=== PATIENT | female | born 1960 | race Caucasian/White ===

== ENCOUNTER 2025-08-03 18:35 | Inpatient (IN) | payer MEDICARE, MEDICAID ==
[~2025-08-03] VITALS: Ht 172.7 cm; Wt 65.5 kg
--- NOTE | 2025-08-03 18:49 | ED.PDOC ---
History of Present Illness HPI Comments 65-year-old female BIBA with prior medical history of MS, high lipids and a chief complaint of constipation. EMS report on picking the patient up from [place] [facility] due from having a CAT scan done at [facility] and was diagnosed with a mild distal colonic ileus and constipation. Patient states t hat her last bowel movement was last night but informed EMS that she has been loose for two months. Denies any other symptoms at this time. Denies chills, fever, N/V, SOB, CP. No other associated symptoms, modifiers, recent injuries or sick contacts present at this time. Chief Complaint: Constipation Time Seen by MD: 18:45 Reviewed Notes: Nurses Notes, Solid Glass Rod Dowel Machine Operator Notes, Medications, Allergies Allergies: Coded Allergies: NO KNOWN ALLERGIES (Unverified , 08/03/25) Information Source: Patient Mode of Arrival: EMS Severity: Moderate Timing: Months Duration: Since onset Prehospital treatment: None Past Medical History Past Medical History (Other): MS, high lipids Surgical History: Denies all surgeries AUTOMOTIVE GENERAL SALES MANAGER History: No Pertinent AUTOMOTIVE GENERAL SALES MANAGER History Family History Family History: Reviewed,noncontributory to illness, Unknown Social History Smoker: Non-Smoker Alcohol: Denies ETOH Use Drugs: Denies Drug Use Lives In: Assisted Care ([place] [facility]) Constitutional: denies: chills, diaphoresis, fatigue, fever, malaise, sweats, weakness, others EENTM: denies: blurred vision, double vision, ear bleeding, ear discharge, ear drainage, ear pain, ear ringing, eye pain, eye redness, hearing loss, mouth pain, mouth swelling, nasal discharge, nose bleeding, nose congestion, nose pain, photophobia, tearing, throat pain, throat swelling, voice changes, others Respiratory: denies: cough, hemoptysis, orthopnea, SOB at rest, shortness of breath, SOB with excertion, stridor, wheezing, others Cardiovascular: denies: chest pain, dizzy spells, diaphoresis, Dyspnea on exertion, edema, irregular heart beat, left arm pain, lightheadedness, palpitations, PND, syncope, others Gastrointestinal: reports: constipated, diarrhea; denies: abdomen distended, abdominal pain, blood streaked bowels, dysphagia, difficulty swallowing, hematemesis, melena, nausea, poor appetite, poor fluid intake, rectal bleeding, rectal pain, vomiting, others Genitourinary: denies: abnormal vagina bleeding, burning, dyspareunia, dysuria, flank pain, frequency, hematuria, incontinence, pain, , vagina discharge, urgency, others Neurological: denies: dizziness, fainting, headache, left sided numbness, left sided weakness, numbness, paresthesia, pre-existing deficit, right sided numbness, right sided weakness, seizure, speech problems, tingling, tremors, weakness, others Musculoskeletal: denies: back pain, gout, joint pain, joint swelling, muscle pain, muscle stiffness, neck pain, others Integumetry: denies: bruises, change in color, change in hair/nails, dryness, laceration, lesions, lumps, rash, wounds, others Allergic/Immunocompromised: denies: Difficulty Healing, Frequent Infections, Hives, Itching, others Hematologic/Lymphatic: denies: anemia, blood clots, easy bleeding, easy bruising, swollen glands, others Endocrine: denies: excessive hunger, excessive sweating, excessive thirst, excessive urination, flushing, intolerance to cold, intolerance to heat, unexplained weight gain, unexplained weight loss, others Psychiatric: denies: anxiety, bipolar disorder, depression, hopeless, panic disorder, schizophrenia, sleepless, suicidal, others All Other Systems: Reviewed and Negative Physical Exam General Appearance: Moderate Distress HEENT: Normal ENT Inspection, Pharynx Normal, TMs Normal Neck: Full Range of Motion, Non-Tender, Normal, Normal Inspection Respiratory: Chest Non-Tender, Lungs Clear, No Accessory Muscle Use, No Respiratory Distress, Normal Breath Sounds Cardiovascular: No Edema, No JVD, No Murmur, No Gallop, Normal Peripheral Pulses, Regular Rate/Rhythm Breast Exam: Deferred Gastrointestinal: Diffuse, No Organomegaly, No Pulsatile Mass, Normal Bowel Sounds, Soft, Tenderness Genitalia: Deferred Pelvic: Deferred Rectal: Deferred Extremities: No calf tenderness, Normal capillary refill, Normal inspection, Normal range of motion, Non-tender, No pedal edema Musculoskeletal : Apperance: Normal Neurologic: Alert, laminating machine feeder II-XII nml as Tested, No Motor Deficits, Normal Affect, Normal Mood, No Sensory Deficits Cerebellar Function: Normal Reflexes: Normal Skin: Dry, Normal Color, Warm Lymphatic: No Adenopathy Was a procedure done? Was a procedure done?: No Differential Dx Considerations may include: Fecal impaction, abdominal pain, generalized weakness X-Ray, Labs, Meds, VS Vital Signs Date Time Temp Pulse Resp B/P (MAP) Pulse Ox O2 Delivery O2 Flow Rate FiO2 08/03/25 19:02 98.3 96 13 126/71 (89) 96 98.3 08/03/25 18:45 97.6 95 18 110/72 98 97.6 Lab Test 08/03/25 19:07 Range/Units White Blood Count 8.5 4.4-10.8 10^3/uL Red Blood Count 5.66 H 4.0-5.20 10^6/uL Hemoglobin 15.8 12.2-16.2 g/dL Hematocrit 47.6 H 36.0-46.0 % Mean Corpuscular Volume 84.0 80.0-100.0 fL Mean Corpuscular Hemoglobin 28.0 28.0-32.0 pg Mean Corpuscular Hemoglobin Concent 33.3 32.0-36.0 g/dL Red Cell Distribution Width 14.0 11.8-14.3 % Platelet Count 254 140-450 10^3/uL Mean Platelet Volume 8.3 6.9-10.8 fL Neutrophils (%) (Auto) 57.1 37.0-80.0 % Lymphocytes (%) (Auto) 33.6 10.0-50.0 % Monocytes (%) (Auto) 7.6 0.0-12.0 % Eosinophils (%) (Auto) 1.2 0.0-7.0 % Basophils (%) (Auto) 0.5 0.0-2.0 % Neutrophils # (Auto) 4.8 1.6-8.6 10 ^3/uL Lymphocytes # (Auto) 2.8 0.4-5.4 10 ^3/uL Monocytes # (Auto) 0.6 0-1.3 10 ^3/uL Eosinophils # (Auto) 0.1 0-0.8 10 ^3/uL Basophils # (Auto) 0 0-0.2 10 ^3/uL Nucleated Red Blood Cells 0.9 % Sodium Level Pending Potassium Level Pending Chloride Level Pending Carbon Dioxide Level Pending Anion Gap Pending Blood Urea Nitrogen Pending Creatinine Pending Glomerular Filtration Rate Calc Pending BUN/Creatinine Ratio Pending Serum Glucose Pending Calcium Level Pending The patient's CBC is within normal limits IV Hep-Lock was established The patient is being admitted with a diagnosis of abdominal pain and constipation or fecal impaction Images Reviewed?: Images reviewed and evaluated by me Time of 1ST Reevaluation: 19:15 Reevaluation 1ST: Unchanged Patient Education/Counseling: Diagnosis, Treatment, Prognosis Family Education/Counseling: No Family Present SEPSIS Sepsis Screen Physician Orders Urinalysis (08/03/25 18:45) Heplock Iv (08/03/25 18:45) Basic Metabolic Panel (08/03/25 18:45) Vital Signs Date Time Temp Pulse Resp B/P (MAP) Pulse Ox O2 Delivery O2 Flow Rate FiO2 08/03/25 19:02 98.3 96 13 126/71 (89) 96 98.3 08/03/25 18:45 97.6 95 18 110/72 98 97.6 Laboratory Tests Test 08/03/25 19:07 White Blood Count 8.5 10^3/uL (4.4-10.8) Departure 1 Departure Time of Disposition: 19:40 Impression: Primary Impression: Intractable abdominal pain Additional Impression: Fecal impaction Disposition: 09 ADMITTED INPATIENT Admit to: Med Surg Condition: Fair Critical Care Note Critical Care Time?: No Stability Stability form required: Yes Unstable for transfer: ED Physician Assesment (Clinical assesment) Heart Score Heart Score: Heart Score Response (Comments) Value History N/A 0 EKG N/A 0 Age N/A 0 Risk Factors N/A 0 Troponin N/A 0 Total 0 I personally scribed for DIOR COX MD ([email or web address]) on 08/03/25 at 18:49. Electronically submitted by Sai Cai ([email or web address]). DIOR COX MD Aug 03, 2025 18:49
[2025-08-03 19:33] LABS: Hematocrit 47.6 % (36.0-46.0); Hemoglobin 15.8 g/dL (12.2-16.2); Mean Corpuscular Hemoglobin 28.0 pg (28.0-32.0); Mean Corpuscular Volume 84.0 fL (80.0-100.0); Nucleated Red Blood Cells % 0.9 %
[2025-08-03 19:37] LABS: Chloride 103 mmol/L (98-107); Potassium 3.9 mmol/L (3.5-5.1); Sodium 140 mmol/L (136-145)
[2025-08-03 19:38] LABS: Anion Gap 15 (5-15); Calcium 9.7 mg/dL (8.7-10.4); Carbon Dioxide 22 mmol/L (20-31)
[2025-08-03 19:43] LABS: BUN/Creatinine Ratio 15.8 (10.0-20.0); Blood Urea Nitrogen 9 mg/dL (9-23); Glucose 72 mg/dL (74-106)
[2025-08-03] MEDS ORDERED: HYDROcodone-ACET 5/325MG TAB PO PRN ×2 (20:15→20:30)
[2025-08-03] MEDS ORDERED: MORPHINE SULFATE 4 MG/ML SYR/VIAL IV PRN ×3 (20:15→20:30)
[2025-08-03] MEDS: SODIUM CHLORIDE 0.9% 1,000 ML IV SCH (20:15)
[2025-08-03] MEDS ORDERED: DOCUSATE SOD 100 MG CAP PO PRN (20:15)
[2025-08-03] MEDS ORDERED: ONDANSETRON HCL 4 MG/2 ML VIAL IV PRN (20:15)
[2025-08-03] MEDS ORDERED: ACETAMINOPHEN 325 MG TAB PO PRN ×2 (20:15→20:30)
[2025-08-03] MEDS ORDERED: NITROGLYCERIN 0.4 MG SL TAB SL PRN ×2 (20:15→20:30)
--- NOTE | 2025-08-03 20:28 | DVHHP2 ---
History of Present Illness HPI 65-year-old female BIBA with prior medical history of MS, high lipids and a chief complaint of constipation. EMS report on picking the patient up from [place] [facility] due from having a CAT scan done at [facility] and was diagnosed with a mild distal colonic ileus and constipation. Patient states that her last bowel movement was last night but informed EMS that she has been loose for two months. Denies any other symptoms at this time. Denies chills, fever, N/V, SOB, CP. No other associated symptoms, modifiers, recent injuries or sick contacts present at this time. H&P Exam Vital Signs Vital Signs Date Time Temp Pulse Resp B/P (MAP) Pulse Ox O2 Delivery O2 Flow Rate FiO2 08/03/25 19:17 95 12 120/72 (88) 96 08/03/25 19:17 Room Air* 0 21 08/03/25 19:02 98.3 98.3 SEPSIS Sepsis Screen Date sepsis recognized/suspect: Aug 03, 2025 Time Sepsis recognized/suspect: 1916 Recent Procedure: No On Antibiotic Therapy: No Respiratory Rate >20: No Heart Rate >90: Yes Temp<36 C (96.8 F) or >38.3 C: No SBP <90 or MAP <65 mmHG: No New Acute Mental Status Change: No Is the patient on CPAP, BIPAP,: No Physician Orders Urinalysis (08/03/25 18:45) Heplock Iv (08/03/25 18:45) Admit (08/03/25 20:07) Sodium Chloride 0.9% (08/03/25 20:15) Acetaminophen Tablet (Tylenol Tablet) (08/03/25 20:15) Hydrocodone-Acet 5/325mg Tab ([place] 5/32 (08/03/25 20:15) Ondansetron Hcl (Zofran) (08/03/25 20:15) Docusate Sodium Capsule (Colace Capsule) (08/03/25 20:15) Enoxaparin Sodium (Lovenox) (08/04/25 10:00) Complete Blood Count (08/04/25 04:00) Comprehensive Metabolic Panel (08/04/25 04:00) Clear Liq Diet (08/04/25 Breakfast) Nitroglycerin Sublingual (Ntrostat Subli (08/03/25 20:15) Stat Ekg For Chest Pain (08/03/25 20:07) Notify Of Changes From Base (08/03/25 20:07) Envelope Stamping Machine Operator For 24 Hours (08/03/25 20:07) Emergency Dysrhythmia Protocol (08/03/25 20:07) Rhythm Strips Once Every Shift (08/03/25 20:07) Oxygen By Nasal Cannula (08/03/25 20:07) * Gi Dvh Agronomy Research Manager (08/03/25 20:09) Morphine Sulfate Injection (08/03/25 20:15) Vital Signs Date Time Temp Pulse Resp B/P (MAP) Pulse Ox O2 Delivery O2 Flow Rate FiO2 08/03/25 19:17 95 12 120/72 (88) 96 08/03/25 19:17 Room Air* 0 21 08/03/25 19:02 98.3 96 13 126/71 (89) 96 98.3 08/03/25 18:45 97.6 95 18 110/72 98 97.6 Laboratory Tests Test 08/03/25 19:07 White Blood Count 8.5 10^3/uL (4.4-10.8) Labs/Xrays Labs Test 08/03/25 19:07 Range/Units White Blood Count 8.5 4.4-10.8 10^3/uL Red Blood Count 5.66 H 4.0-5.20 10^6/uL Hemoglobin 15.8 12.2-16.2 g/dL Hematocrit 47.6 H 36.0-46.0 % Mean Corpuscular Volume 84.0 80.0-100.0 fL Mean Corpuscular Hemoglobin 28.0 28.0-32.0 pg Mean Corpuscular Hemoglobin Concent 33.3 32.0-36.0 g/dL Red Cell Distribution Width 14.0 11.8-14.3 % Platelet Count 254 140-450 10^3/uL Mean Platelet Volume 8.3 6.9-10.8 fL Neutrophils (%) (Auto) 57.1 37.0-80.0 % Lymphocytes (%) (Auto) 33.6 10.0-50.0 % Monocytes (%) (Auto) 7.6 0.0-12.0 % Eosinophils (%) (Auto) 1.2 0.0-7.0 % Basophils (%) (Auto) 0.5 0.0-2.0 % Neutrophils # (Auto) 4.8 1.6-8.6 10 ^3/uL Lymphocytes # (Auto) 2.8 0.4-5.4 10 ^3/uL Monocytes # (Auto) 0.6 0-1.3 10 ^3/uL Eosinophils # (Auto) 0.1 0-0.8 10 ^3/uL Basophils # (Auto) 0 0-0.2 10 ^3/uL Nucleated Red Blood Cells 0.9 % Sodium Level 140 136-145 mmol/L Potassium Level 3.9 3.5-5.1 mmol/L Chloride Level 103 98-107 mmol/L Carbon Dioxide Level 22 20-31 mmol/L Anion Gap 15 5-15 Blood Urea Nitrogen 9 9-23 mg/dL Creatinine 0.57 0.550-1.02 mg/dL Glomerular Filtration Rate Calc 100 >90 mL/min BUN/Creatinine Ratio 15.8 10.0-20.0 Serum Glucose 72 L 74-106 mg/dL Calcium Level 9.7 8.7-10.4 mg/dL AMANDA SEARS DO Aug 03, 2025 20:28
[2025-08-03] MEDS: ENOXAPARIN SOD 40 MG/0.4 ML SYRINGE SC SCH (20:30)
[2025-08-03 22:27] VITALS: RESP 14
[2025-08-04] VITALS (8 sets, daily range): BP systolic 110–131; BP diastolic 62–88; PULSE 82–118; RESP 16–20; TEMP 97.5–98.6; O2SAT 94–97
[2025-08-04] MEDS ORDERED: MELA3TAB27 PO (06:15)
[2025-08-04] MEDS ORDERED: SIMV-268 PO (06:15)
[2025-08-04 06:46] LABS: Hematocrit 46.3 % (36.0-46.0); Hemoglobin 15.7 g/dL (12.2-16.2); Mean Corpuscular Hemoglobin 28.6 pg (28.0-32.0); Mean Corpuscular Volume 84.4 fL (80.0-100.0); Nucleated Red Blood Cells % 0.2 %
[2025-08-04 07:18] LABS: Alanine Aminotransferase 13 U/L (7-40); Albumin 3.9 g/dL (3.2-4.8); Alkaline Phosphatase 84 U/L (46-116); Anion Gap 19 (5-15); BUN/Creatinine Ratio 16.9 (10.0-20.0); Bilirubin, Total 0.8 mg/dL (0.2-1.0); Blood Urea Nitrogen 10 mg/dL (9-23); Calcium 9.6 mg/dL (8.7-10.4); Carbon Dioxide 19 mmol/L (20-31); Chloride 103 mmol/L (98-107); Glucose 66 mg/dL (74-106); Potassium 4.2 mmol/L (3.5-5.1); Sodium 141 mmol/L (136-145); Total Protein 6.7 g/dL (5.7-8.2)
[2025-08-04] MEDS ORDERED: ENOXAPARIN SOD 40 MG/0.4 ML SYRINGE SC SCH (10:00)
--- NOTE | 2025-08-04 13:11 | DVHPN2 ---
Progress Note Objective vital signs Vital Sign Date Time Temp Pulse Resp B/P (MAP) Pulse Ox O2 Delivery O2 Flow Rate FiO2 08/04/25 12:34 98.4 82 20 115/66 (82) 97 98.4 08/04/25 08:00 Room Air* 0 21 Total Intake and Output 08/03/25 08/03/25 08/04/25 15:00 23:00 07:00 Intake Total 120 ml 0 ml Balance 120 ml 0 ml medications Current Medications Medications Dose Ordered Sig/Giovani Route Start Time Stop Time Status Last Admin Dose Admin Sodium Chloride 1,000 ml @ 120 mls/hr Q8H20M IV 08/03/25 20:15 08/03/25 20:15 120 MLS/HR Ondansetron HCl 4 mg Q4HP PRN IV 08/03/25 20:15 Docusate Sodium 100 mg BIDPRN PRN PO 08/03/25 20:15 Acetaminophen/ Hydrocodone Bitart 1 tab Q4HP PRN PO 08/03/25 20:30 Acetaminophen 650 mg Q6HP PRN PO 08/03/25 20:30 Morphine Sulfate 2 mg Q4HPRN PRN IV 08/03/25 20:30 Enoxaparin Sodium 40 mg DAILY@2000 SC 08/03/25 20:30 08/03/25 20:30 40 MG Nitroglycerin 0.4 mg Q5MINP PRN SL 08/03/25 20:30 Morphine Sulfate 2 mg Q30M PRN IV 08/03/25 20:30 laboratory and microbiology Laboratory Tests 08/04/25 06:06 08/04/25 06:04 Test 08/04/25 06:06 Range/Units Serum Glucose 66 L 74-106 mg/dL My Orders My Orders Orders - AMANDA SEARS DO Procedure Category Date Status Time Admit ADMIT 08/03/25 Transmitted 20:28 Code Status CODE 08/03/25 Transmitted 20:28 Hydrocodone-Acet PHA 08/03/25 In Process 5/325mg Tab ([place] 20:30 Complete Blood Count LAB 08/05/25 Verified 04:00 Comprehensive LAB 08/05/25 Verified Metabolic Panel 04:00 Acetaminophen Tablet PHA 08/03/25 In Process (Tylenol Tablet) 20:30 Enoxaparin Sodium PHA 08/03/25 In Process (Lovenox) 20:30 Nitroglycerin PHA 08/03/25 In Process Sublingual (Ntrostat 20:30 Stat Ekg For Chest YURY 08/03/25 In Process Pain 20:28 Notify Of Changes YURY 08/03/25 In Process From Base 20:28 Interface Control Officer For [facility] 08/03/25 In Process 24 Hours 20:28 Emergency Dysrhythmia [facility] 08/03/25 In Process Protocol 20:28 Rhythm Strips Once [facility] 08/03/25 In Process Every Shift 20:28 Oxygen By Nasal RT 08/03/25 Transmitted Cannula 20:28 Morphine Sulfate PHA 08/03/25 In Process Injection 20:30 Morphine Sulfate PHA 08/03/25 In Process Injection 20:30 AMANDA SEARS DO Aug 04, 2025 13:11
--- NOTE | 2025-08-04 13:41 | DVHINCON2 ---
GI Consult Consult Note GI consult note Date of Consultation: 08/04/2025 Chief Complaint: Abdominal pain Referring Physician: Dr. Le H&P: 65-year-old female past medical history of MS, high lipids admitted with complains of constipation. Patient was transferred from [place] [facility] where she had a CT scan done which diagnosed her with mild distal colonic ileus and constipation. Last bowel movement one day ago, usually patient has bowel movement about once a week. No melena or red blood in stool. Patient denies abdominal pain no nausea or vomiting Past Medical History: MS, high lipids Past Surgical History: Denies Social History: NO smoking, drinking ETOH and use of illegal drugs. Family History: Noncontributory Review of Systems: Constitutional: no fever, chill, weight loss HEENT: no eye pain, no hearing loss, no oral lesion, no scleral icterus Heart: no chest pain, no chest pressure Lung: no cough, no dyspnea with exertion Abdomen: see HPI Physical exam: General: NAD, AAOX3 Chest: lung noel clear to auscultation Heart: RRR, no murmur Abdomen: non-distended, no tenderness to palpation, +BS Labs: Labs Test 08/04/25 06:06 08/04/25 06:04 Range/Units Sodium Level 141 136-145 mmol/L Potassium Level 4.2 3.5-5.1 mmol/L Chloride Level 103 98-107 mmol/L Carbon Dioxide Level 19 L 20-31 mmol/L Anion Gap 19 H 5-15 Blood Urea Nitrogen 10 9-23 mg/dL Creatinine 0.59 0.550-1.02 mg/dL Glomerular Filtration Rate Calc 99 >90 mL/min BUN/Creatinine Ratio 16.9 10.0-20.0 Serum Glucose 66 L 74-106 mg/dL Calcium Level 9.6 8.7-10.4 mg/dL Total Bilirubin 0.8 0.2-1.0 mg/dL Aspartate Amino Transferase (AST) 18 13-40 U/L Alanine Aminotransferase (ALT) 13 7-40 U/L Alkaline Phosphatase 84 46-116 U/L Total Protein 6.7 5.7-8.2 g/dL Albumin 3.9 3.2-4.8 g/dL White Blood Count 8.1 4.4-10.8 10^3/uL Red Blood Count 5.48 H 4.0-5.20 10^6/uL Hemoglobin 15.7 12.2-16.2 g/dL Hematocrit 46.3 H 36.0-46.0 % Mean Corpuscular Volume 84.4 80.0-100.0 fL Mean Corpuscular Hemoglobin 28.6 28.0-32.0 pg Mean Corpuscular Hemoglobin Concent 33.9 32.0-36.0 g/dL Red Cell Distribution Width 13.8 11.8-14.3 % Platelet Count 252 140-450 10^3/uL Mean Platelet Volume 8.4 6.9-10.8 fL Neutrophils (%) (Auto) 65.3 37.0-80.0 % Lymphocytes (%) (Auto) 27.1 10.0-50.0 % Monocytes (%) (Auto) 5.9 0.0-12.0 % Eosinophils (%) (Auto) 1.1 0.0-7.0 % Basophils (%) (Auto) 0.6 0.0-2.0 % Neutrophils # (Auto) 5.3 1.6-8.6 10 ^3/uL Lymphocytes # (Auto) 2.2 0.4-5.4 10 ^3/uL Monocytes # (Auto) 0.5 0-1.3 10 ^3/uL Eosinophils # (Auto) 0.1 0-0.8 10 ^3/uL Basophils # (Auto) 0 0-0.2 10 ^3/uL Nucleated Red Blood Cells 0.2 % Imaging: Assessment: Abdominal pain improving Fecal impaction Plan: Discussed with Dr. Baca Advance diet as tolerated MiraLax and Fleet's enema We will continue to monitor patient Plan discussed with patient and RN Thank you for this consult Date of Service: Aug 04, 2025 Billing Provider: SUNITHA FLOWERS Common Visit Codes: CONSULT ONLY Consultation Codes: [id number] CONSULT <60MIN SUNITHA FLOWERS Aug 04, 2025 13:41
[2025-08-04] MEDS: FLEET ENEMA(ADULT) 135 ML PR ONE (14:50)
[2025-08-04] MEDS: POLYETHYLENE GLYCOL 17 GM PWDR PO ONE (14:51)
--- NOTE | 2025-08-04 17:58 | DVHPN2 ---
Progress Note - Dictate Date Seen: Aug 04, 2025 Medical Necessity Reason Pt with a Central, PICC or Fol: No vital signs Vital Sign Date Time Temp Pulse Resp B/P (MAP) Pulse Ox O2 Delivery O2 Flow Rate FiO2 08/04/25 16:35 97.9 118 18 131/88 (102) 97 97.9 08/04/25 08:00 Room Air* 0 21 Total Intake and Output 08/03/25 08/03/25 08/04/25 15:00 23:00 07:00 Intake Total 120 ml 0 ml Balance 120 ml 0 ml medications Current Medications Medications Dose Ordered Sig/Giovani Route Start Time Stop Time Status Last Admin Dose Admin Sodium Chloride 1,000 ml @ 120 mls/hr Q8H20M IV 08/03/25 20:15 08/04/25 14:50 Ondansetron HCl 4 mg Q4HP PRN IV 08/03/25 20:15 Docusate Sodium 100 mg BIDPRN PRN PO 08/03/25 20:15 Acetaminophen/ Hydrocodone Bitart 1 tab Q4HP PRN PO 08/03/25 20:30 Acetaminophen 650 mg Q6HP PRN PO 08/03/25 20:30 Morphine Sulfate 2 mg Q4HPRN PRN IV 08/03/25 20:30 Enoxaparin Sodium 40 mg DAILY@2000 SC 08/03/25 20:30 08/03/25 20:30 Nitroglycerin 0.4 mg Q5MINP PRN SL 08/03/25 20:30 Morphine Sulfate 2 mg Q30M PRN IV 08/03/25 20:30 objective General Appearance: alert, no distress HEENT: EOMI, PERRLA, normal external inspect of ears, no icterus, no nasal drainage Neck: no carotid bruit, no jugular venous distention (JVD), no lymphadenopathy Chest: normal thorax Respiratory: clear to auscultation, normal air movement Cardiovascular: regular rate and rhythm, no diastolic murmur, no jugular venous distention (JVD), no rub, no systolic murmur Abdominal: soft, no hepatomegaly, no mass, no splenomegaly, no tenderness Musculoskeletal: no joint tenderness, no swelling Extremities: normal pulses, no calf tenderness, no clubbing, no cyanosis, no edema Skin: no bruising, no jaundice, no rash Neurological: alert, No focal deficit laboratory and microbiology Laboratory Tests 08/04/25 06:06 08/04/25 06:04 Test 08/04/25 06:06 Range/Units Serum Glucose 66 L 74-106 mg/dL Problem List -Intractable abdominal pain GI consult, Clear liquid diet, monitoring -Hyperlipidemia Monitoring -Chronic constipation Medication, monitoring -Fecal impaction Medication, monitoring Assessment/Plan Subjective Patient is awake and alert. Objective Patient states she still has some improvement to her abdominal pain. Patient reports bowel movement yesterday. She states she has chronic constipation. She was seen by GI. Patient has fecal impaction. Plan Start cathartics. Continue clear liquid diet. Advance as tolerated. Restart simvastatin for hypercholesterolemia. Continue PPI and DVT prophylaxis. Plan discussed with: Patient, Other SUJATA EDDY NP Aug 04, 2025 17:58
--- NOTE | 2025-08-04 17:58 | DVHHP2 ---
Admitting Diagnosis: Constipation History of Present Illness 65 year old female is complaining of constipation. She states she had a CT done at [facility] and she was diagnosed with mild distal colonic ileus and constipation. Patient states her last bowel movement was last night. While in the emergency department the patient was evaluated by the provider. Patient will be admitted for further evaluation and treatment. I discussed admission with the patient/family and is in agreement to treatment plan. Patient Family History: Patient reports no known family medical history. Allergies: Coded Allergies: NO KNOWN ALLERGIES (Unverified , 08/03/25) Home Meds Reported Medications Simvastatin (Zocor) 10 Mg Tab, 10 MG PO HS, TAB 08/04/25 Melatonin (KP MELATONIN) 3 Mg Tab, 5 MG PO HS, TAB 08/04/25 Current Medications Current Medications Medications (Trade) Dose Ordered Sig/Giovani Route PRN Reason Start Time Stop Time Status Last Admin Sodium Chloride 1,000 ml @ 120 mls/hr Q8H20M IV 08/03/25 20:15 08/04/25 14:50 Acetaminophen (Tylenol Tablet) 325 mg Q4HP PRN PO MILD PAIN (1-3 PAIN SCALE) 08/03/25 20:15 08/03/25 20:39 DC Acetaminophen/ Hydrocodone Bitart ([place] 5/325MG Tab) 1 tab Q4HP PRN PO MODERATE PAIN (4-6 PAIN SCALE) 08/03/25 20:15 08/03/25 20:39 DC Ondansetron HCl (Zofran) 4 mg Q4HP PRN IV NAUSEA / VOMITING 08/03/25 20:15 Docusate Sodium (Colace Capsule) 100 mg BIDPRN PRN PO FOR CONSTIPATION 08/03/25 20:15 Enoxaparin Sodium (Lovenox) 40 mg DAILY SC 08/04/25 10:00 08/03/25 20:39 DC Nitroglycerin (Ntrostat Sublingual) 0.4 mg Q5MINP PRN SL FOR CHEST PAIN 08/03/25 20:15 08/03/25 20:39 DC Morphine Sulfate 2 mg Q30M PRN IV FOR CHEST PAIN 08/03/25 20:15 08/03/25 20:39 DC Acetaminophen/ Hydrocodone Bitart ([place] 5/325MG Tab) 1 tab Q4HP PRN PO MODERATE PAIN (4-6 PAIN SCALE) 08/03/25 20:30 Acetaminophen (Tylenol Tablet) 650 mg Q6HP PRN PO PAIN SCALE 1-3 OR TEMP>100.4 08/03/25 20:30 Morphine Sulfate 2 mg Q4HPRN PRN IV SEVERE PAIN (7-10 PAIN SCALE) 08/03/25 20:30 Enoxaparin Sodium (Lovenox) 40 mg DAILY@2000 SC 08/03/25 20:30 08/03/25 20:30 Nitroglycerin (Ntrostat Sublingual) 0.4 mg Q5MINP PRN SL FOR CHEST PAIN 08/03/25 20:30 Morphine Sulfate 2 mg Q30M PRN IV FOR CHEST PAIN 08/03/25 20:30 Melatonin (Melatonin) 5 mg HS PO 08/04/25 22:00 Patient Own Medication 10 mg HS PO 08/04/25 22:00 Pantoprazole Sodium (Protonix) 40 mg DAILY IV 08/05/25 10:00 Lactulose 30 ml BID PO 08/04/25 22:00 Bisacodyl (Dulcolax Suppository) 10 mg DAILY ME 08/04/25 18:15 08/04/25 18:33 Review of Systems Constipation Vital Signs Vital Signs Date Time Temp Pulse Resp B/P (MAP) Pulse Ox O2 Delivery O2 Flow Rate FiO2 08/04/25 16:35 97.9 118 18 131/88 (102) 97 97.9 08/04/25 08:00 Room Air* 0 21 Physical Exam General Appearance: alert, no distress HEENT: EOMI, PERRLA, normal external inspect of ears, no icterus, no nasal drainage Neck: no carotid bruit, no jugular venous distention (JVD), no lymphadenopathy Chest: normal thorax Respiratory: clear to auscultation, normal air movement Cardiovascular: regular rate and rhythm, no diastolic murmur, no jugular venous distention (JVD), no rub, no systolic murmur Abdominal: soft, no hepatomegaly, no mass, no splenomegaly, no tenderness Musculoskeletal: no joint tenderness, no swelling Extremities: normal pulses, no calf tenderness, no clubbing, no cyanosis, no edema Skin: no bruising, no jaundice, no rash Neurological: alert, No focal deficit SEPSIS Sepsis Screen Date sepsis recognized/suspect: Aug 03, 2025 Time Sepsis recognized/suspect: 1917 Recent Procedure: No On Antibiotic Therapy: No Respiratory Rate >20: No Heart Rate >90: Yes Temp<36 C (96.8 F) or >38.3 C: No SBP <90 or MAP <65 mmHG: No New Acute Mental Status Change: No Is the patient on CPAP, BIPAP,: No Physician Orders Urinalysis (08/03/25 18:45) Heplock Iv (08/03/25 18:45) Admit (08/03/25 20:07) Sodium Chloride 0.9% (08/03/25 20:15) Ondansetron Hcl (Zofran) (08/03/25 20:15) Docusate Sodium Capsule (Colace Capsule) (08/03/25 20:15) Stat Ekg For Chest Pain (08/03/25 20:07) Notify Md Of Changes From Base (08/03/25 20:07) Communication Coordinator For 24 Hours (08/03/25 20:07) Emergency Dysrhythmia Protocol (08/03/25 20:07) Rhythm Strips Once Every Shift (08/03/25 20:07) Oxygen By Nasal Cannula (08/03/25 20:07) * Gi D[facility] Corrections Counselor (08/03/25 20:09) Admit (08/03/25:) Code Status (08/03/25:) Hydrocodone-Acet 5/325mg Tab ([place] 5/32 (08/03/25 20:30) Complete Blood Count (08/05/25 04:00) Comprehensive Metabolic Panel (08/05/25 04:00) Acetaminophen Tablet (Tylenol Tablet) (08/03/25 20:30) Enoxaparin Sodium (Lovenox) (08/03/25 20:30) Nitroglycerin Sublingual (Ntrostat Subli (08/03/25 20:30) Stat Ekg For Chest Pain (08/03/25:) Notify Md Of Changes From Base (08/03/25:) Communication Coordinator For 24 Hours (08/03/25 20:) Emergency Dysrhythmia Protocol (08/03/25 20:) Rhythm Strips Once Every Shift (08/03/25 20:28) Oxygen By Nasal Cannula (12/16/25 20:28) Morphine Sulfate Injection (08/03/25 20:30) Morphine Sulfate Injection (08/03/25 20:30) Full Liq Diet (08/04/25 Dinner) Abdomen Without Contrast (08/04/25 17:58) Melatonin (Melatonin) (08/04/25 22:00) (Nf) Simvastatin (Zocor) (08/04/25 22:00) Pantoprazole (Protonix) (08/05/25 10:00) Lactulose Oral (08/04/25 22:00) Bisacodyl Suppository (Dulcolax Supposit (08/04/25 18:15) Vital Signs Date Time Temp Pulse Resp B/P (MAP) Pulse Ox O2 Delivery O2 Flow Rate FiO2 08/04/25 16:35 97.9 118 18 131/88 (102) 97 97.9 08/04/25 12:34 98.4 82 20 115/66 (82) 97 98.4 08/04/25 08:40 97.9 91 19 110/62 (78) 95 97.9 08/04/25 08:00 90 08/04/25 08:00 16 Room Air* 0 21 08/04/25 04:52 97.7 97 18 121/70 (87) 96 97.7 08/04/25 01:00 98.6 108 19 119/86 (97) 96 98.6 08/03/25 22:27 14 Room Air* 0 21 08/03/25 19:17 95 12 120/72 (88) 96 08/03/25 19:17 Room Air* 0 21 08/03/25 19:02 98.3 96 13 126/71 (89) 96 98.3 08/03/25 18:45 97.6 95 18 110/72 98 97.6 Laboratory Tests Test 08/03/25 19:07 08/04/25 06:04 White Blood Count 8.5 10^3/uL (4.4-10.8) 8.1 10^3/uL (4.4-10.8) Medications Medications Dose Ordered Sig/Giovani Route Start Time Stop Time Status Last Admin Dose Admin Bisacodyl 10 mg DAILY ME 08/04/25 18:15 08/04/25 18:33 Polyethylene Glycol 17 gm ONCE ONCE PO 08/04/25 13:45 08/04/25 14:09 DC 08/04/25 14:51 Sodium Biphosphate/ Sodium Phosphate 135 ml ONCE ONCE ME 08/04/25 13:45 08/04/25 14:09 DC 08/04/25 14:50 Results Labs Test 08/04/25 06:06 08/04/25 06:04 Range/Units Sodium Level 141 136-145 mmol/L Potassium Level 4.2 3.5-5.1 mmol/L Chloride Level 103 98-107 mmol/L Carbon Dioxide Level 19 L 20-31 mmol/L Anion Gap 19 H 5-15 Blood Urea Nitrogen 10 9-23 mg/dL Creatinine 0.59 0.550-1.02 mg/dL Glomerular Filtration Rate Calc 99 >90 mL/min BUN/Creatinine Ratio 16.9 10.0-20.0 Serum Glucose 66 L 74-106 mg/dL Calcium Level 9.6 8.7-10.4 mg/dL Total Bilirubin 0.8 0.2-1.0 mg/dL Aspartate Amino Transferase (AST) 18 13-40 U/L Alanine Aminotransferase (ALT) 13 7-40 U/L Alkaline Phosphatase 84 46-116 U/L Total Protein 6.7 5.7-8.2 g/dL Albumin 3.9 3.2-4.8 g/dL White Blood Count 8.1 4.4-10.8 10^3/uL Red Blood Count 5.48 H 4.0-5.20 10^6/uL Hemoglobin 15.7 12.2-16.2 g/dL Hematocrit 46.3 H 36.0-46.0 % Mean Corpuscular Volume 84.4 80.0-100.0 fL Mean Corpuscular Hemoglobin 28.6 28.0-32.0 pg Mean Corpuscular Hemoglobin Concent 33.9 32.0-36.0 g/dL Red Cell Distribution Width 13.8 11.8-14.3 % Platelet Count 252 140-450 10^3/uL Mean Platelet Volume 8.4 6.9-10.8 fL Neutrophils (%) (Auto) 65.3 37.0-80.0 % Lymphocytes (%) (Auto) 27.1 10.0-50.0 % Monocytes (%) (Auto) 5.9 0.0-12.0 % Eosinophils (%) (Auto) 1.1 0.0-7.0 % Basophils (%) (Auto) 0.6 0.0-2.0 % Neutrophils # (Auto) 5.3 1.6-8.6 10 ^3/uL Lymphocytes # (Auto) 2.2 0.4-5.4 10 ^3/uL Monocytes # (Auto) 0.5 0-1.3 10 ^3/uL Eosinophils # (Auto) 0.1 0-0.8 10 ^3/uL Basophils # (Auto) 0 0-0.2 10 ^3/uL Nucleated Red Blood Cells 0.2 % Microbiology Date/Time Source Procedure Growth Status 08/04/25 05:20 Nose MRSA Screen - Final Complete Primary Diagnosis -Intractable abdominal pain GI consult, Clear liquid diet, monitoring -Hyperlipidemia Monitoring -Chronic constipation Medication, monitoring -Fecal impaction Medication, monitoring Plan discussed with: Patient, Other SUJATA EDDY NP Aug 04, 2025 17:58
[2025-08-04] MEDS: BISACODYL 10 MG RECT SUPP PR SCH (18:33)
[2025-08-04] MEDS: LACTULOSE 20Gm/30ML SOLN PO SCH (22:00)
[2025-08-04] MEDS: MELATONIN 5 MG TAB PO SCH (22:35)
[2025-08-05] VITALS (8 sets, daily range): BP systolic 100–125; BP diastolic 51–80; PULSE 70–92; RESP 15–20; TEMP 97.6–98.3; O2SAT 95–97
[2025-08-05 06:10] LABS: Hematocrit 41.4 % (36.0-46.0); Hemoglobin 13.9 g/dL (12.2-16.2); Mean Corpuscular Hemoglobin 28.4 pg (28.0-32.0); Mean Corpuscular Volume 84.3 fL (80.0-100.0); Nucleated Red Blood Cells % 0.6 %
[2025-08-05 06:36] LABS: Alanine Aminotransferase 15 U/L (7-40); Albumin 3.4 g/dL (3.2-4.8); Alkaline Phosphatase 69 U/L (46-116); Anion Gap 16 (5-15); BUN/Creatinine Ratio 25.5 (10.0-20.0); Bilirubin, Total 0.7 mg/dL (0.2-1.0); Blood Urea Nitrogen 12 mg/dL (9-23); Calcium 8.9 mg/dL (8.7-10.4); Potassium 3.7 mmol/L (3.5-5.1); Sodium 144 mmol/L (136-145)
[2025-08-05 06:38] LABS: Carbon Dioxide 19 mmol/L (20-31); Chloride 109 mmol/L (98-107); Glucose 70 mg/dL (74-106); Total Protein 5.3 g/dL (5.7-8.2)
--- NOTE | 2025-08-05 09:24 | DVH ---
EXAM: CT CT AB PEL WO CON-NO ORAL OR IV History: R/O ILEUS Comparison Study: None TECHNIQUE: Multidetector CT of the abdomen was performed from lung bases to pubic symphysis. Imaging was performed without IV contrast. Axial, coronal and sagittal multiplanar reformats were obtained from the axial data set by the technologist. Radiation Dose Information: CT Dose: CTDI volume is 13.99 mGy. Dose-length product is 758.03 mGy*cm FINDINGS: Evaluation of solid organs is limited due to lack of intravenous contrast use. FINDINGS: Lung Bases: No acute or significant lung base finding. Normal heart size. No pleural or pericardial effusion. Liver: The liver is normal in size. No focal lesions. Gallbladder and Biliary Tree: There is a large gallstone. Gallbladder is moderately distended. Spleen: Unremarkable Pancreas: The pancreas is grossly normal in appearance. Adrenal Glands: Unremarkable Kidneys: Kidneys are grossly normal without calculi or hydronephrosis. Bladder: Grossly unremarkable for degree of distention. Bowel: There is a large amount of stool present within the rectum. There is no evidence of bowel obstruction. Ascites: Absent Lymphadenopathy: No mesenteric, retroperitoneal or periportal lymphadenopathy. Abdominal Wall and Mesentery: Unremarkable. Vasculature: The visualized abdominal aorta is normal in size and caliber. Evaluation of abdominal and pelvic vessels is limited due to lack of intravenous contrast. Pelvic Organs: There is a 1 cm dermoid present within the uterus. Musculoskeletal: No aggressive focal bony lesions, acute fractures or dislocation. Soft tissues: Unremarkable IMPRESSION: 1. Cholelithiasis. 2. Large amount of retained stool seen in the rectum. 3. Radiation optimization: All CT scans at this facility use at least one of these dose optimization techniques: automated exposure control mA and/or kV adjustment per patient size (includes targeted exams where dose is matched to clinical indication) or iterative reconstruction.
[2025-08-05] MEDS: PANTOPRAZOLE 40 MG/10 ML VIAL INJ IV SCH (10:49)
--- NOTE | 2025-08-05 11:58 | DVHPN2 ---
Progress Note - Dictate Date Seen: Aug 05, 2025 Medical Necessity Reason Pt with a Central, PICC or Fol: No vital signs Vital Sign Date Time Temp Pulse Resp B/P (MAP) Pulse Ox O2 Delivery O2 Flow Rate FiO2 08/05/25 08:30 98.0 77 19 116/61 (79) 96 98.0 08/04/25 20:00 Room Air* 0 21 Total Intake and Output 08/04/25 08/04/25 08/05/25 15:00 23:00 07:00 Intake Total 400 ml 200 ml Balance 400 ml 200 ml medications Current Medications Medications Dose Ordered Sig/Giovani Route Start Time Stop Time Status Last Admin Dose Admin Sodium Chloride 1,000 ml @ 120 mls/hr Q8H20M IV 08/03/25 20:15 08/05/25 10:56 120 MLS/HR Ondansetron HCl 4 mg Q4HP PRN IV 08/03/25 20:15 Docusate Sodium 100 mg BIDPRN PRN PO 08/03/25 20:15 Acetaminophen/ Hydrocodone Bitart 1 tab Q4HP PRN PO 08/03/25 20:30 Acetaminophen 650 mg Q6HP PRN PO 08/03/25 20:30 Morphine Sulfate 2 mg Q4HPRN PRN IV 08/03/25 20:30 Enoxaparin Sodium 40 mg DAILY@2000 SC 08/03/25 20:30 08/04/25 21:01 40 MG Nitroglycerin 0.4 mg Q5MINP PRN SL 08/03/25 20:30 Morphine Sulfate 2 mg Q30M PRN IV 08/03/25 20:30 Melatonin 5 mg HS PO 08/04/25 22:00 08/04/25 22:35 5 MG Patient Own Medication 10 mg HS PO 08/04/25 22:00 Pantoprazole Sodium 40 mg DAILY IV 08/05/25 10:00 08/05/25 10:49 40 MG Lactulose 30 ml BID PO 08/04/25 22:00 08/05/25 10:56 30 ML Bisacodyl 10 mg DAILY OH 08/04/25 18:15 08/04/25 18:33 10 MG objective General Appearance: alert, no distress HEENT: EOMI, PERRLA, normal external inspect of ears, no icterus, no nasal drainage Neck: no carotid bruit, no jugular venous distention (JVD), no lymphadenopathy Chest: normal thorax Respiratory: clear to auscultation, normal air movement Cardiovascular: regular rate and rhythm, no diastolic murmur, no jugular venous distention (JVD), no rub, no systolic murmur Abdominal: soft, no hepatomegaly, no mass, no splenomegaly, no tenderness Musculoskeletal: no joint tenderness, no swelling Extremities: normal pulses, no calf tenderness, no clubbing, no cyanosis, no edema Skin: no bruising, no jaundice, no rash Neurological: alert, No focal deficit laboratory and microbiology Laboratory Tests 08/05/25 04:45 Test 08/05/25 04:45 Range/Units Serum Glucose 70 L 74-106 mg/dL Problem List -Intractable abdominal pain GI consult, Clear liquid diet, monitoring -Hyperlipidemia Monitoring -Chronic constipation Medication, monitoring -Fecal impaction Medication, monitoring Assessment/Plan Subjective Patient is awake and alert. Objective Patient reported 4 bowel movements today. She states she is still severely constipated. Repeat KUB is pending. Continue cathartics. Patient is tolerating diet. Patient had 4 bowel movements today. Plan Possible DC planning in 1 to 2 days back to [place] [facility]. Plan discussed with: Patient, Other SUJATA EDDY NP Aug 05, 2025 11:58
[2025-08-05 12:31] LABS: Urine Protein, UAD Negative (Negative)
--- NOTE | 2025-08-05 13:36 | DVHPN2 ---
Subjective Patient denies abdominal pain Multiple bowel movements today Patient does not feel like she is completely disimpacted Changes from previous H/P or p: No Changes Objective Vitals Vital Signs Date Time Temp Pulse Resp B/P (MAP) Pulse Ox O2 Delivery O2 Flow Rate FiO2 08/05/25 08:30 98.0 77 19 116/61 (79) 96 98.0 08/04/25 20:00 Room Air* 0 21 Intake/Output Intake and Output 08/05/25 07:00 Intake Total 600 ml Balance 600 ml Intake Oral 600 ml # Voids 6 # Bowel Movements 4 Exam General: NAD, AAOX3 Chest: lung noel clear to auscultation Heart: RRR, no murmur Abdomen: non-distended, no tenderness to palpation, +BS Medications Current Medications Medications Dose Ordered Sig/Giovani Route Start Time Stop Time Status Last Admin Dose Admin Sodium Chloride 1,000 ml @ 120 mls/hr Q8H20M IV 08/03/25 20:15 08/05/25 10:56 120 MLS/HR Ondansetron HCl 4 mg Q4HP PRN IV 08/03/25 20:15 Docusate Sodium 100 mg BIDPRN PRN PO 08/03/25 20:15 Acetaminophen/ Hydrocodone Bitart 1 tab Q4HP PRN PO 08/03/25 20:30 Acetaminophen 650 mg Q6HP PRN PO 08/03/25 20:30 Morphine Sulfate 2 mg Q4HPRN PRN IV 08/03/25 20:30 Enoxaparin Sodium 40 mg DAILY@2000 SC 08/03/25 20:30 08/04/25 21:01 40 MG Nitroglycerin 0.4 mg Q5MINP PRN SL 08/03/25 20:30 Morphine Sulfate 2 mg Q30M PRN IV 08/03/25 20:30 Melatonin 5 mg HS PO 08/04/25 22:00 08/04/25 22:35 5 MG Patient Own Medication 10 mg HS PO 08/04/25 22:00 Pantoprazole Sodium 40 mg DAILY IV 08/05/25 10:00 08/05/25 10:49 40 MG Lactulose 30 ml BID PO 08/04/25 22:00 08/05/25 10:56 30 ML Bisacodyl [address] 08/04/25 18:15 08/04/25 18:33 10 MG Laboratory Results Laboratory Tests 08/05/25 04:45 Chemistry Test 08/05/25 04:45 Albumin 3.4 g/dL (3.2-4.8) Calcium Level 8.9 mg/dL (8.7-10.4) Total Protein 5.3 g/dL (5.7-8.2) L LFT Test 08/05/25 04:45 Alanine Aminotransferase (ALT) 15 U/L (7-40) Alkaline Phosphatase 69 U/L (46-116) Aspartate Amino Transferase (AST) 18 U/L (13-40) Total Bilirubin 0.7 mg/dL (0.2-1.0) Urinalysis Test 08/05/25 12:00 Urine Color Light-yellow (Yellow) Urine Clarity Turbid (Clear) H Urine pH 5.0 (5.0-9.0) Urine Specific [place] 1.014 (1.001-1.035) Urine Protein Negative (Negative) Urine Ketones 4+ (Negative) H Urine Blood 1+ /uL (Negative) H Urine Nitrite Negative (Negative) Urine Bilirubin Negative (Negative) Urine Urobilinogen Normal mg/dL (Negative) Urine Leukocyte Esterase 1+ /uL (Negative) Urine RBC 2 /hpf (0 - 4) Urine Microscopic WBC 7 /HPF (0-5) H Urine Squamous Epithelial Cells Few /hpf (<5) Urine Bacteria Few /hpf (None Seen) H Urine Mucus Few (None Seen) Urine Glucose Normal mg/dL (Normal) Microbiology Microbiology Date/Time Source Procedure Growth Status 08/04/25 05:20 Nose MRSA Screen - Final Complete Assessment/Plan Assessment/Plan Abdominal pain improving Fecal impaction Plan: Discussed with Dr. Baca Soft diet Enema today Continue with Dulcolax We will continue to monitor patient Plan discussed with: Patient My Orders Orders - SUNITHA FLOWERS Procedure Category Date Status Time Full Liq Diet DIET 08/04/25 Transmitted Dinner Date of Service: Aug 05, 2025 Billing Provider: SUNITHA FLOWERS Common Visit Codes: [id number] INP/OBS CARE(HIGH) SUNITHA FLOWERS Aug 05, 2025 13:36
--- NOTE | 2025-08-05 14:44 | DVH ---
Date: 08/05/2025 01:15 PM Examination: XY KUB ABDOMEN SINGLE VIEW History: f/u COMPARISON: None TECHNIQUE: Frontal views of the abdomen was obtained. FINDINGS: Bowel gas pattern is unremarkable. Stool scattered throughout the colon with a large volume of stool in the rectosigmoid area. The lung bases are unremarkable. No acute osseous abnormality identified. IMPRESSION: 1. Nonobstructive bowel gas pattern. 2. Stool scattered throughout the colon 3. Large volume of stool in the rectosigmoid area.
[2025-08-05] MEDS: FLEET ENEMA(ADULT) 135 ML PR ONE (14:56)
[2025-08-06 08:00] VITALS: PULSE 85
[2025-08-06 09:06] VITALS: BP 119/73; PULSE 82; RESP 20; TEMP 98.4; O2SAT 95
--- NOTE | 2025-08-06 10:46 | DVHDS2 ---
Discharge Summary Date of Admission Aug 03, 2025 at 20:07 Date of Discharge: Aug 06, 2025 Admitting Diagnosis fecal impaction Labs/Diagnostic Data: Laboratory Results Test 08/05/25 12:00 08/05/25 04:45 Urine Color Light-yellow (Yellow) Urine Clarity Turbid (Clear) Urine pH 5.0 (5.0-9.0) Urine Specific [place] 1.014 (1.001-1.035) Urine Protein Negative (Negative) Urine Ketones 4+ (Negative) Urine Blood 1+ /uL (Negative) Urine Nitrite Negative (Negative) Urine Bilirubin Negative (Negative) Urine Urobilinogen Normal mg/dL (Negative) Urine Leukocyte Esterase 1+ /uL (Negative) Urine RBC 2 /hpf (0 - 4) Urine Microscopic WBC 7 /HPF (0-5) Urine Squamous Epithelial Cells Few /hpf (<5) Urine Bacteria Few /hpf (None Seen) Urine Mucus Few (None Seen) Urine Glucose Normal mg/dL (Normal) White Blood Count 6.0 10^3/uL (4.4-10.8) Red Blood Count 4.90 10^6/uL (4.0-5.20) Hemoglobin 13.9 g/dL (12.2-16.2) Hematocrit 41.4 % (36.0-46.0) Mean Corpuscular Volume 84.3 fL (80.0-100.0) Mean Corpuscular Hemoglobin 28.4 pg (28.0-32.0) Mean Corpuscular Hemoglobin Concent 33.7 g/dL (32.0-36.0) Red Cell Distribution Width 13.7 % (11.8-14.3) Platelet Count 192 10^3/uL (140-450) Mean Platelet Volume 8.5 fL (6.9-10.8) Neutrophils (%) (Auto) 59.1 % (37.0-80.0) Lymphocytes (%) (Auto) 30.3 % (10.0-50.0) Monocytes (%) (Auto) 7.5 % (0.0-12.0) Eosinophils (%) (Auto) 2.4 % (0.0-7.0) Basophils (%) (Auto) 0.7 % (0.0-2.0) Neutrophils # (Auto) 3.6 10 ^3/uL (1.6-8.6) Lymphocytes # (Auto) 1.8 10 ^3/uL (0.4-5.4) Monocytes # (Auto) 0.5 10 ^3/uL (0-1.3) Eosinophils # (Auto) 0.1 10 ^3/uL (0-0.8) Basophils # (Auto) 0 10 ^3/uL (0-0.2) Nucleated Red Blood Cells 0.6 % Sodium Level 144 mmol/L (136-145) Potassium Level 3.7 mmol/L (3.5-5.1) Chloride Level 109 mmol/L (98-107) Carbon Dioxide Level 19 mmol/L (20-31) Anion Gap 16 (5-15) Blood Urea Nitrogen 12 mg/dL (9-23) Creatinine 0.47 mg/dL (0.550-1.02) Glomerular Filtration Rate Calc 104 mL/min (>90) BUN/Creatinine Ratio 25.5 (10.0-20.0) Serum Glucose 70 mg/dL (74-106) Calcium Level 8.9 mg/dL (8.7-10.4) Total Bilirubin 0.7 mg/dL (0.2-1.0) Aspartate Amino Transferase (AST) 18 U/L (13-40) Alanine Aminotransferase (ALT) 15 U/L (7-40) Alkaline Phosphatase 69 U/L (46-116) Total Protein 5.3 g/dL (5.7-8.2) Albumin 3.4 g/dL (3.2-4.8) Other Laboratory Tests 08/05/25 04:45 Brief Hx & Hospital Course: Patient was admitted for intractable abdominal pain secondary to fecal impaction. During hospitalization, the patient was treated with multiple enemas and cathartic agents, resulting in significant improvement in constipation and resolution of abdominal pain. The patient tolerated treatment well without complications. The patient is a resident of [facility] and is clinically stable for [facility] of care and bowel regimen management. Condition at Discharge: Fair Final Diagnosis/Problems List -Intractable abdominal pain GI consult, Clear liquid diet, monitoring -Hyperlipidemia Monitoring -Chronic constipation Medication, monitoring -Fecal impaction Discharge Disposition: Assisted Living Facility Discharge Instruct/Medications Diet: Cardiac 2g Na,low cholest Activity: No Restrictions, As Tolerated Follow Up/Referral: PCP within 1 week Scheduled Melatonin ( Melatonin), 5 MG PO HS, (Reported) Simvastatin (Zocor), 10 MG PO HS, (Reported) Discharge Statement: "Patient was advised to return to the ER or call 911 if any headaches, dizziness, shortness of breath, chest pain, abdominal pain, bleeding, fevers, or worsening of medical condition. Patient was counseled about treatment plan, medications, possible side effects, patientverbalized understanding. All questions were answered to the best of my ability. This discharge took greater then 30 minutes in planning, reviewing documentation, counseling the patient, and discussing with other team members." ASSESSMENT ASSESSMENT Assessment -Intractable abdominal pain GI consult, Clear liquid diet, monitoring -Hyperlipidemia Monitoring -Chronic constipation Medication, monitoring -Fecal impaction RAFAEL AGUILAR Aug 06, 2025 10:46
--- NOTE | 2025-08-06 12:24 | DVHPN2 ---
Subjective Patient denies abdominal pain Patient admits to feeling better Bowel movement in a.m. Discharge planning in process Changes from previous H/P or p: No Changes Objective Vitals Vital Signs Date Time Temp Pulse Resp B/P (MAP) Pulse Ox O2 Delivery O2 Flow Rate FiO2 08/06/25 09:06 98.4 82 20 119/73 (88) 95 98.4 08/06/25 08:00 Room Air* 0 21 Intake/Output Intake and Output 08/06/25 07:00 Intake Total 1850 ml Balance 1850 ml Intake Oral 850 ml IV Total 1000 ml # Voids 10 # Bowel Movements 1 Exam General: NAD, AAOX3 Chest: lung noel clear to auscultation Heart: RRR, no murmur Abdomen: non-distended, no tenderness to palpation, +BS Medications Current Medications Medications Dose Ordered Sig/Giovani Route Start Time Stop Time Status Last Admin Dose Admin Sodium Chloride 1,000 ml @ 120 mls/hr Q8H20M IV 08/03/25 20:15 08/06/25 05:54 120 MLS/HR Ondansetron HCl 4 mg Q4HP PRN IV 08/03/25 20:15 Docusate Sodium 100 mg BIDPRN PRN PO 08/03/25 20:15 Acetaminophen/ Hydrocodone Bitart 1 tab Q4HP PRN PO 08/03/25 20:30 Acetaminophen 650 mg Q6HP PRN PO 08/03/25 20:30 Morphine Sulfate 2 mg Q4HPRN PRN IV 08/03/25 20:30 Enoxaparin Sodium 40 mg DAILY@2000 SC 08/03/25 20:30 08/04/25 21:01 40 MG Nitroglycerin 0.4 mg Q5MINP PRN SL 08/03/25 20:30 Morphine Sulfate 2 mg Q30M PRN IV 08/03/25 20:30 Melatonin 5 mg HS PO 08/04/25 22:00 08/05/25 21:14 5 MG Patient Own Medication 10 mg HS PO 08/04/25 22:00 Pantoprazole Sodium 40 mg DAILY IV 08/05/25 10:00 08/06/25 09:07 40 MG Lactulose 30 ml BID PO 08/04/25 22:00 08/06/25 09:07 30 ML Bisacodyl 10 mg DAILY OR 08/04/25 18:15 08/06/25 09:07 10 MG Laboratory Results Laboratory Tests 08/05/25 04:45 Urinalysis Test 08/05/25 12:00 Urine Color Light-yellow (Yellow) Urine Clarity Turbid (Clear) H Urine pH 5.0 (5.0-9.0) Urine Specific Balm 1.014 (1.001-1.035) Urine Protein Negative (Negative) Urine Ketones 4+ (Negative) H Urine Blood 1+ /uL (Negative) H Urine Nitrite Negative (Negative) Urine Bilirubin Negative (Negative) Urine Urobilinogen Normal mg/dL (Negative) Urine Leukocyte Esterase 1+ /uL (Negative) Urine RBC 2 /hpf (0 - 4) Urine Microscopic WBC 7 /HPF (0-5) H Urine Squamous Epithelial Cells Few /hpf (<5) Urine Bacteria Few /hpf (None Seen) H Urine Mucus Few (None Seen) Urine Glucose Normal mg/dL (Normal) Microbiology Microbiology Date/Time Source Procedure Growth Status 08/04/25 05:20 Nose MRSA Screen - Final Complete Assessment/Plan Assessment/Plan Abdominal pain improving Fecal impaction Plan: Discussed with Dr. Baca Regular diet Recommend Dulcolax every day As needed patient can have enemas Also recommend MiraLax if needed High-fiber diet recommended Outpatient GI follow-up advised for possible elective colonoscopy if required Plan discussed with: Patient My Orders Orders - SUNITHA FLOWERS Procedure Category Date Status Time Mechanical Soft Diet DIET 08/05/25 Transmitted Dinner Date of Service: Aug 06, 2025 Billing Provider: SUNITHA FLOWERS Common Visit Codes: [id number] INP/OBS CARE(HIGH) SUNITHA FLOWERS Aug 06, 2025 12:24
[2025-08-06 12:25] VITALS: BP 118/74; PULSE 80; RESP 19; TEMP 98.3; O2SAT 95
[2025-08-06 16:30] VITALS: BP 133/75; PULSE 79; RESP 19; TEMP 98.1; O2SAT 98
== END 2025-08-06 18:38 | disposition home or self-care (01) | DRG 390 ==
LOC: EDBD 18:35 → ER 18:35 → OVERFLOW 20:07 → TELE-WESTW 21:35
PROVIDERS: ADMIT Nurse Practitioner; ATTEND Nurse Practitioner
DX: K56.41 Fecal impaction (principal); E78.5 Hyperlipidemia, unspecified
CPT/HCPCS: 36415; 74018; 74176; 80048; 80053; 81001; 85025; 87081; G0378; J2470